=== PATIENT | male | born 1955 | race Two or more races ===

== ENCOUNTER 2021-01-10 10:30 | Inpatient (IN) | payer OTHER ==
[~2021-01-10] VITALS: Ht 165.1 cm; Wt 78.5 kg
[2021-01-10] MEDS ORDERED: SYNTHROID150 MCG PO (12:43)
[2021-01-10] MEDS ORDERED: FOSINOPRIL SODI10 MG PO (12:43)
[2021-01-10] MEDS ORDERED: PROTONIX40 MG PO (12:44)
[2021-01-10] MEDS ORDERED: ADULT LOW DOSE81 M1 PO (12:44)
[2021-01-10] MEDS ORDERED: ZOCOR40 MG PO (12:44)
[2021-01-10] MEDS ORDERED: XELPROS2.5 ML OP (12:45)
[2021-01-10] MEDS ORDERED: DORZOLAMIDE HCL10 ML OP (12:45)
[2021-01-10] MEDS ORDERED: LUBRICANT EYE15 M1 OP (12:46)
[2021-01-10] MEDS ORDERED: D3 + K2 DOTS 11 EACH PO (12:46)
[2021-01-17] MEDS ORDERED: PRILOSEC OTC20 MG PO (15:05)
[2021-01-17] MEDS ORDERED: ULTRACET PO (15:05)
== END 2021-01-17 16:22 | disposition home or self-care (01) | DRG 331 ==
LOC: SURH 01-14 07:00 → O/R 01-14 10:09 → SURH 01-14 10:09
PROVIDERS: ADMIT Surgery; ATTEND Surgery
PROC: 0DBN4ZZ Excision of Sigmoid Colon, Percutaneous Endoscopic Approach (ICD-10-PCS; 2021-01-14)
PROC: 0DJD8ZZ Inspection of Lower Intestinal Tract, Via Natural or Artificial Opening Endoscopic (ICD-10-PCS; 2021-01-14)
PROC: 0DTP4ZZ Resection of Rectum, Percutaneous Endoscopic Approach (ICD-10-PCS; principal; 2021-01-14 07:00)
DX: K57.32 Diverticulitis of large intestine without perforation or abscess without bleeding (principal); Z20.822 Contact with and (suspected) exposure to COVID-19

== ENCOUNTER 2024-11-14 06:09 | Emergency (ER) | payer OTHER ==
[~2024-11-14] VITALS: Ht 165.1 cm; Wt 91.6 kg
[~2024-11-14 06:09] MED LIST: ADULT LOW DOSE81 M1 PO; D3 + K2 DOTS 11 EACH PO; DORZOLAMIDE HCL10 ML OP; FOSINOPRIL SODI10 MG PO; LUBRICANT EYE15 M1 OP; PRILOSEC OTC20 MG PO; PROTONIX40 MG PO; SYNTHROID150 MCG PO; ULTRACET PO; XELPROS2.5 ML OP; ZOCOR40 MG PO
== END 2024-11-14 07:53 | disposition home or self-care (01) ==
LOC: ER 06:40
DX: R31.9 Hematuria, unspecified (principal)